=== PATIENT | female | born 1970 | race Caucasian/White ===

== ENCOUNTER 2016-10-01 09:29 | Emergency (ER) | payer MEDICAID ==
[~2016-10-01 09:29] MED LIST: AMBIEN DPS5 MG PO; ASPIR 8181 MG PO; ATIVAN-DPS1 MG PO; CARAFATE DPS1 GM PO; EFFEXOR XR DPS150 M1 PO; LIPITOR DPS40 MG PO; METOPROLOL TART25 MG PO; NORCO 5-325 TA1 EACH PO; TYLENOL DPS325 MG PO; XANAX DPS0.5 MG PO; ZESTRIL DPS10 MG PO; [UNRECOGNIZED DRUG - OTHER] PO
--- NOTE | 2016-10-01 16:37 | ER ---
ADMIT: 10/01/2016 RM/LOC: ER [facility] MR#: [id number] [address] [id number] [address] [place] [address] Emergency Room Report SEX: F AGE: 45 : 1970 DATE: 10/01/2016 CHIEF COMPLAINT: Sore throat. HISTORY OF PRESENT ILLNESS: This 45-year-old white female, who presents with 3 days duration of increasing sore throat, primarily on the left side. States she was started on CPAP one week ago. Had similar symptoms on the right side with sore throat, right-sided neck pain. This did improve. States on Sunday, she had increased pain on the left side. Denies any fever, chills, runny nose, congestion, or cough. She does have some ear pain on the left. No lymphadenopathy. Worse with swallowing. She has not tried any medications for this at this point. She has past medical history of coronary artery disease, status post CABG. She has a significant family history for aneurysm and cardiac disease presents today concerning for some potential relation to this pathology. COURSE IN THE EMERGENCY ROOM: The patient was examined. GENERAL: She is afebrile and nontoxic. No acute distress. HEENT: Head normocephalic atraumatic. Sinuses not painful with percussion. Mouth, throat, pharynx is nonerythematous. No tonsillar exudates or swelling. No airway problems. Ears are pearly white bilaterally. No erythema or loss of landmarks. NECK: No cervical lymphadenopathy. She does have some tenderness on the left side of her neck. No stiff neck. She has a full range of motion. LUNGS: Clear to auscultation. HEART: Regular. No rash. I did get a rapid strep screen, negative. Did give her 600 mg of Motrin p.o., states this is improving her pain at this time. IMPRESSION: Pharyngitis. DISPOSITION: The patient was encouraged to use Tylenol or ibuprofen as needed for pain. Increase fluids. Return for worsening signs or symptoms. Follow up with Dr. Boston this week if she is not improving. I did recommend she follows up with her CPAP providers, they may need to increase the humidity on her machine. Questions sought and answered to best of my ability and the patient's satisfaction. Discharged in stable condition. RON Zarco / Thad Morales MD / michael JOB #: [id number] CC: Thad Morales MD, Attending Physician Maribell Boston MD, Family Physician
== END 2016-10-01 11:10 | disposition home or self-care (01) ==
LOC: ER 09:29
DX: J02.9 Acute pharyngitis, unspecified (principal); I10 Essential (primary) hypertension; F17.210 Nicotine dependence, cigarettes, uncomplicated; Z95.1 Presence of aortocoronary bypass graft; Z90.49 Acquired absence of other specified parts of digestive tract; Z79.82 Long term (current) use of aspirin; Z79.899 Other long term (current) drug therapy